=== PATIENT | male | born 1980 | race African-American/Black ===

== ENCOUNTER 2022-08-22 11:09 | Inpatient (IN) | payer MEDICARE, SELFPAY ==
[2022-08-22] MEDS ORDERED: HYDROcodone/Acetaminophen 5/325 mg Tablet PO PRN (14:56)
[2022-08-22] MEDS ORDERED: Ondansetron PF 4 MG/2 ML Vial IVP PRN (14:56)
[2022-08-22] MEDS ORDERED: Acetaminophen 325 MG TAB PO PRN (14:56)
[2022-08-22 15:17] VITALS: BMI 33.0
[2022-08-22] MEDS ORDERED: FLU VACC QS2022-23(6MOS UP)/PF 60 MCG/0.5 ML SYRINGE IM ONE (15:30)
[2022-08-22] MEDS ORDERED: GUAIFENESIN SF SOLN 200 MG/10 ML UDCUP PO PRN (15:43)
[2022-08-22] MEDS ORDERED: Nicotine 21 MG PATCH TD SCH (16:00)
[2022-08-22] MEDS: Arformoterol 15 MCG/2 ML NEB NEB SCH (18:40)
[2022-08-22] MEDS: Benzonatate 100 MG CAP PO SCH (20:55)
[2022-08-22] MEDS: Famotidine 20 MG TAB PO SCH (20:55)
[2022-08-22] MEDS: methylPREDNISolone Sod Succ 40 MG VIAL IVP SCH (21:00)
[2022-08-22 22:38] LABS: Legionella Urinary Ag Negative (Negative); Strep pneumo Urine Ag NEGATIVE (NEGATIVE)
[2022-08-22] MEDS: Ipratropium/Albuterol 3 ML NEB NEB PRN (22:59)
[2022-08-23 04:25] LABS: Anion Gap 12 mmol/L (10-20); BUN (Urea Nitrogen) 17 mg/dL (8.9-20.6); Calc. Creatinine Clearance 171 mL/min (70-130); Calcium 9.4 mg/dL (7.8-10.44); Carbon Dioxide 26 mmol/L (22-29); Chloride 104 mmol/L (98-107); Estimated GFR 113; Glucose 129 mg/dL (70-105); Potassium 4.5 mmol/L (3.5-5.1); Sodium 137 mmol/L (136-145)
[2022-08-23 04:41] LABS: Band 3 % (5-11); Hemoglobin 15.8 g/dL (14.0-18.0); Lymphocytes 3 % (21-51); MDiff Complete? YES; Mean Corpuscular Hemoglobin 30.8 pg (27.0-31.0); Mean Corpuscular Volume 93.4 fl (78.0-98.0); Mean Platelet Volume 8.9 fL (7.4-10.4); Monocytes 2 % (0-10); Neutrophil 92 % (42-75); Platelet Count 199 10x3/uL (130-400); Platelet Morphology Comment Appears Adequate; RBC Distribution Width 11.9 % (11.5-14.5); RBC Morphology Normal; Red Blood Cell (RBC) Count 5.14 mill/uL (4.70-6.10)
[2022-08-23] MEDS: Arformoterol 15 MCG/2 ML NEB NEB SCH ×2 (06:37→18:57)
[2022-08-23] MEDS: Ipratropium/Albuterol 3 ML NEB NEB PRN (06:37)
[2022-08-23] MEDS: methylPREDNISolone Sod Succ 40 MG VIAL IVP SCH ×3 (06:57→20:23)
[2022-08-23] MEDS: Benzonatate 100 MG CAP PO SCH ×3 (09:17→20:22)
[2022-08-23] MEDS: Famotidine 20 MG TAB PO SCH ×2 (09:17→20:22)
[2022-08-23] MEDS: cefTRIAXone\\ROCEPHIN 1 GM in Sodium Chloride 0.9% 100 ML IVPB SCH (09:17)
[2022-08-23] MEDS: Nicotine 21 MG PATCH TD SCH (09:18)
[2022-08-23] MEDS: Azithromycin 500 MG in Sodium Chloride 0.9% 250 ML 250 ML IVPB SCH (09:35)
[2022-08-24] MEDS: methylPREDNISolone Sod Succ 40 MG VIAL IVP SCH ×2 (05:20→14:46)
[2022-08-24] MEDS: Arformoterol 15 MCG/2 ML NEB NEB SCH ×2 (07:24→18:24)
[2022-08-24] MEDS: Ipratropium/Albuterol 3 ML NEB NEB PRN (07:26)
[2022-08-24] MEDS: Nicotine 21 MG PATCH TD SCH (08:26)
[2022-08-24] MEDS: cefTRIAXone\\ROCEPHIN 1 GM in Sodium Chloride 0.9% 100 ML IVPB SCH (08:26)
[2022-08-24] MEDS: Benzonatate 100 MG CAP PO SCH ×2 (08:27→14:46)
[2022-08-24] MEDS: Famotidine 20 MG TAB PO SCH (08:27)
[2022-08-24] MEDS: Azithromycin 500 MG in Sodium Chloride 0.9% 250 ML 250 ML IVPB SCH (10:18)
[2022-08-24 12:26] VITALS: BP 151/86; TEMP 98.8
== END 2022-08-24 19:15 | disposition home or self-care (01) | DRG 871 ==
LOC: IMCU/EMU 13:55 → SURG A 08-23 15:31
PROVIDERS: ADMIT Internal Medicine; ATTEND Hospitalist
DX: A41.9 Sepsis, unspecified organism (principal); J96.01 Acute respiratory failure with hypoxia; J96.02 Acute respiratory failure with hypercapnia; F17.210 Nicotine dependence, cigarettes, uncomplicated; H91.90 Unspecified hearing loss, unspecified ear; Z20.822 Contact with and (suspected) exposure to COVID-19; J20.9 Acute bronchitis, unspecified; J43.9 Emphysema, unspecified; K21.9 Gastro-esophageal reflux disease without esophagitis
CPT/HCPCS: 36415; 71250; 80048; 82103; 85025; 87449; 87633; 87899; 90471; 90686; 94640; G0008; J0456; J0696; J1650; J2920; J3490; J7050; J7620